=== PATIENT | male | born 1980 | race Caucasian/White ===

== ENCOUNTER 2017-07-02 21:05 | Emergency (ER) | payer SELFPAY ==
[~2017-07-02] VITALS: Ht 172.7 cm; Wt 85.7 kg
[2017-07-02 21:33] VITALS: Ht 172.7 cm; Wt 85.7 kg
[2017-07-02 23:47] VITALS: BP 120/68
== END 2017-07-02 23:47 | disposition home or self-care (01) ==
LOC: ED 21:05
DX: S16.1XXA Strain of muscle, fascia and tendon at neck level, initial encounter (principal); V89.2XXA Person injured in unspecified motor-vehicle accident, traffic, initial encounter; Y93.89 Activity, other specified; Y92.89 Other specified places as the place of occurrence of the external cause; Y99.8 Other external cause status